=== PATIENT | male | born 2000 | race Caucasian/White ===

== ENCOUNTER 2021-06-14 22:04 | Emergency (ER) | payer OTHER, SELFPAY ==
[2021-06-14] VITALS (13 sets, daily range): BP systolic 133; BP diastolic 83; PULSE 59–76; RESP 12–22; TEMP 36.6; O2SAT 99–100
--- NOTE | 2021-06-14 22:15 | RT.EKG_ITS ---
APPROVED REPORT Exam: Resting ECG Reason for Exam: lightheaded Patient Location: E HR:62 bpm ECG Measurements Heart Rate 62 AXIS CO 170 P 24 QRSd 115 QRS 43 QT 398 T 41 QTc 405 Conclusion Sinus rhythm...normal P axis, V-rate 60- 99 Nonspecific intraventricular conduction delay...QRSd >115mS, not LBBB/RBBB ST elev, probable normal early repol pattern...ST elevation, age<55
--- NOTE | 2021-06-14 22:29 | ED.GENADUL_ITS ---
Discharge Plan Disposition Patient Disposition: HOME Condition: Improving Discharge Details Clinical Impression: Dizziness, Light-headedness, Headache Primary Care Provider: Unknown,Unknown ED Provider: Satinder Pena Home Meds and New Rx's Prescriptions: New meclizine 25 mg tablet 25 mg PO TID PRN (Reason: dizziness) Qty: 20 0RF Continued paroxetine HCl 30 mg Tablet 30 mg PO DAILY 0RF Discharge Instructions Instructions: Dizziness (ED), General Headache (ED) Additional Instructions: Please follow-up with your primary care physician and seek follow-up with neurology specialist. Please return to the emergency department if you have any worsening symptoms such as worsening headache visual changes dizziness nausea vomiting weakness numbness or other abnormal symptoms. Medical Decision Making <Pa Millard MD - Last Filed: 06/14/21 23:04> 21 yo male who has a hx of anxiety and denies other chronic medical issues, comes in with complaints of feeling lightheaded and dizzy. He states he ran a 5K Monday and noticed after he would get episodes where he felt both dizzy and lightheaded. Denies chest pain, dyspnea, fevers, chills, head pain. Since this he has had intermittent episodes similar to this and feels it is worse with head movement. He denies falls. He can't think of anything that makes his symptoms better other than not moving his head. He arrives stable speaking clearly. CN II-XII intact, no focal motor or sensation deficits, NIH of 0, reassuring HINTS exam. His symptoms seem most consistent with peripheral vertigo and no findings to suggest central vertigo. He does state he also feels lightheaded with these episodes as well. NO chest pain or dyspnea so doubt acs, will obtain ecg and also evaluate for anemia and electrolyte abnormalities. Wells low and perc negative so doubt PE. Denies any head or neck pain so doubt dissection. Pt signed out to oncoming provider pending labs and reevaluation after meclizine. Differential Diagnosis Differential Diagnosis: bppv, labrynthitis, over exertion ECG Data Attestation: I personally reviewed and interpreted this ECG (s) as follows: Prior ECG tracings: not available for review Interpretation: sinus rhythm, rate of 60, no stemi early repol <Satinder Pena MD - Last Filed: 06/15/21 01:18> 21 yo male who has a hx of anxiety and denies other chronic medical issues, comes in with complaints of feeling lightheaded and dizzy. He states he ran a 5K Monday and noticed after he would get episodes where he felt both dizzy and lightheaded. Denies chest pain, dyspnea, fevers, chills, head pain. Since this he has had intermittent episodes similar to this and feels it is worse with head movement. He denies falls. He can't think of anything that makes his symptoms better other than not moving his head. He arrives stable speaking clearly. CN II-XII intact, no focal motor or sensation deficits, NIH of 0, reassuring HINTS exam. His symptoms seem most consistent with peripheral vertigo and no findings to suggest central vertigo. He does state he also feels lightheaded with these episodes as well. NO chest pain or dyspnea so doubt acs, will obtain ecg and also evaluate for anemia and electrolyte abnormalities. Wells low and perc negative so doubt PE. Denies any head or neck pain so doubt dissection. Pt signed out to oncoming provider pending labs and reevaluation after meclizine. 1: 15 AM patient resting comfortably no acute distress symptoms greatly improved from arrival. Endorses remote trauma sustaining concussion no prior neuroimaging, since that event patient has been having electric shocklike sensations in the frontal portion of his head rating to the rest of his body. No chest pain no shortness of breath no presyncope. Asymptomatic at this time ambulatory no acute distress. Patient encouraged to follow-up with neurology is going to see his primary and specialist when he returns home to [place] in the coming weeks. Given home care instructions and return precautions. HPI <Pa Millard MD - Last Filed: 06/14/21 23:04> General Mode of arrival: ambulatory . Date/Time Provider Initiated Documentation: 06/14/21 22:04 . Limitations to Documentation: no limitations . Information obtained by: patient . History of Present Illness 21 year old M presents to the emergency department with the chief complaint of lightheaded, described as moderate, Patient started experiencing this day(s) (2) and it has been intermittent. Other factors that worsen symptoms (head movement) . Patient notes denies chest pain. Patient did receive the following treatments prior to arrival, none Related Data Home Medications Medication Instructions Recorded Confirmed meclizine 25 mg tablet 25 mg PO TID PRN #20 tab 06/14/21 paroxetine HCl 30 mg tablet 30 mg PO DAILY 06/14/21 06/14/21 Previous Rx's Medication Instructions Recorded meclizine 25 mg tablet 25 mg PO TID PRN #20 tab 06/14/21 General Stated Complaint: Dizzy/Sync BRENDA: 3 Review of Systems <Pa Millard MD - Last Filed: 06/14/21 23:04> All systems reviewed & are unremarkable except as noted in HPI and below Constitutional Constitutional: Denies chills, Denies fever(s) and Denies weakness Eyes Eyes: Denies loss of vision Cardiovascular Cardiovascular: Denies chest pain and Denies dyspnea Respiratory Respiratory: Denies cough and Denies dyspnea Gastrointestinal Gastrointestinal: Denies abdominal pain, Denies nausea and Denies vomiting Neurologic Neurologic: Denies loss of vision and Denies weakness PFSH <Pa Millard MD - Last Filed: 06/14/21 23:04> All Active Problems (Updated 06/15/21 @ 01:18 by Satinder Pena MD) Dizziness (Acute) Light-headedness (Acute) Headache (Acute) Social History Smoking/Tobacco Use Status: Never Smoking risk assessment performed?: Yes Alcohol Intake: never Drug use: Never Substance use type: does not use Do you feel safe at home: Yes Do you feel safe in your relationship?: Yes Course <Pa Millard MD - Last Filed: 06/14/21 23:04> Vital Signs Vital signs: Vital Signs Temperature 36.6 C 06/14/21 22:08 Pulse 76 06/14/21 22:08 Respiratory Rate 18 06/14/21 22:08 Blood Pressure 133/83 06/14/21 22:08 Pulse Oximetry 99 06/14/21 22:08 Temperature 36.6 C 06/14/21 22:08 Temperature Source Skin 06/14/21 22:08 Pulse 76 06/14/21 22:08 Respiratory Rate 18 06/14/21 22:11 Respiratory Effort 06/14/21 22:11 Respiratory Depth Normal 06/14/21 22:11 Respiratory Pattern Normal 06/14/21 22:11 Blood Pressure 133/83 06/14/21 22:08 Blood Pressure Position Sitting 06/14/21 22:08 Pulse Oximetry 99 05/09/22 22:08 Oxygen Delivery Method Room Air 06/14/21 22:08 Oxygen Flow Rate 0 06/14/21 22:08 Pain Level 2 06/14/21 22:08 Sign Out <Pa Millard MD - Last Filed: 06/14/21 23:04> Sign Out Data: Sign Out Comment: episodes where he feels lightheaded and dizzy mainly with head movement since Monday, pending labs and reassessment after meclizine. Reassuring exam. Last updated by Pa Millard MD at 06/14/21 22:36
[2021-06-14] MEDS: Normal Saline 1,000 ML 1000 ML IV (22:43)
[2021-06-14] MEDS: Meclizine 25 MG TAB PO (22:43)
[2021-06-14 22:48] LABS: Abs Immature Grans 0.03 10^3/uL (0.0-0.06); Absolute Basophil Count 0.03 10^3/uL (0.0-0.2); Absolute Eosinophil Count 0.14 10^3/uL (0.0-0.7); Absolute Lymphocyte Count 1.63 10^3/uL (1.2-3.4); Absolute Monocyte Count 0.47 10^3/uL (0.1-0.8); Absolute Neutrophil Count 4.15 10^3/uL (1.2-6.7); Basophils % 0.5; Eosinophils % 2.2; HCT 44.1 % (40.0-50.0); HGB 14.5 g/dL (13.5-17.5); Immature Grans % 0.5; Lymphocytes % 25.3; MCH 29.1 pg (27.0-33.0); MCHC 32.9 % (32.0-36.0); MCV 88 fL (80-95); Monocytes % 7.3; Neutrophils % 64.2; Platelet Count 164 10^3/uL (130-400); RBC 4.99 10^6/uL (4.36-5.78); RDW 11.9 % (11.8-14.1); RDW-SD 38.2 fL; WBC 6.45 10^3/uL (4.4-10.8)
[2021-06-14 23:14] LABS: ALT 35 U/L (16-63); AST 27 U/L (15-37); Albumin 4.1 g/dL (3.4-5.0); Alkaline Phosphatase 82 U/L (46-116); Anion Gap 7.1 mmol/L (3-11); BUN 11 mg/dL (7-18); Bilirubin, Total 0.8 mg/dL (0.2-1.0); CO2 27.9 mmol/L (21.0-32.0); Calcium 8.7 mg/dL (8.5-10.1); Chloride 105 mmol/L (98-107); Glucose 110 mg/dL (74-106); Potassium 3.3 mmol/L (3.5-5.1); Sodium 140 mmol/L (136-145); Total Protein 7.4 g/dL (6.4-8.2); Troponin I < 50 ng/L (<or=60)
--- NOTE | 2021-06-14 23:45 | DI.CT_ITS ---
Exam(s) CT HEAD WO EXAM: CT HEAD WO CLINICAL HISTORY: frontal headaches, worsening, remote trauma. TECHNIQUE: Imaging Protocol: Axial computed tomography images with coronal and sagittal reformatted images were created and reviewed COMPARISON: No exams were available for comparison FINDINGS: There are no skull fractures nor fluid in the visualized paranasal sinuses. There is no evidence of intracranial hemorrhage, mass effect, or shift of midline structures. There are no extra-axial fluid collections. The ventricles are not enlarged or shifted and there is no blo od within the ventricular system nor within the basal cisterns. IMPRESSION: No acute intracranial findings on this noninfused CT scan of the brain. RADIATION DOSE DELIVERED: 879.07mGy.cm Total DLP DATA REPOSITORY: All CT scans at this facility are submitted to the National Radiology Data Registry (NRDR) Dose Index Registry (DIR) with the [employer] (A[employer]). RADIATION OPTIMIZATION: All CT scans at this facility use at least one of these dose optimization te chniques: automated exposure control; mA and/or kV adjustment per patient size (includes targeted exa ms where dose is matched to clinical indication); or iterative reconstruction.
[2021-06-15] VITALS (12 sets, daily range): BP systolic 120–122; BP diastolic 58–70; PULSE 58–77; RESP 10–25; O2SAT 99–100
--- NOTE | 2021-06-15 01:13 | DI.VRAD_ITS ---
PROCEDURE INFORMATION: Exam: CT Head Without Contrast Exam date and time: 06/15/2021 12:28 AM Age: 21 years old Clinical indication: Dizziness; Patient HX: Frontal headaches, worsening remote trauma; Additional info: HX of concussion last year TECHNIQUE: Imaging protocol: Computed tomography of the head without contrast. Radiation optimization: All CT scans at this facility use at least one of these dose optimization techniques: automated exposure control; mA and/or kV adjustment per patient size (includes targeted exams where dose is matched to clinical indication); or iterative reconstruction. COMPARISON: No relevant prior studies available. FINDINGS: Brain: Mild volume loss No hemorrhage. Unremarkable white matter. No mass effect. Cerebral ventricles: No ventriculomegaly. Paranasal sinuses: Visualized sinuses are unremarkable. No fluid levels. Mastoid air cells: Visualized mastoid air cells are well aerated. Bones/joints: Unremarkable. No acute fracture. Soft tissues: Unremarkable. IMPRESSION: No acute intracranial abnormality. Dictated and Authenticated by: Bennie Taylor MD. Ordering:BARBI Rajan MD
== END 2021-06-15 01:20 | disposition home or self-care (01) ==
PROVIDERS: Emergency Medicine; Emergency Provider Emergency Medicine
DX: R42 Dizziness and giddiness (principal); R51.9 Headache, unspecified
CPT/HCPCS: 36415; 80053; 93005; 96360; 99284; 70450; 83735; 84484; 85025; 93010

== ENCOUNTER 2021-12-19 19:16 | Emergency (ER) | payer OTHER, SELFPAY ==
--- OUTSIDE RECORDS SUMMARY | 2021-12-19 19:21 | XMS_ITS | Continuity of Care Document ---
:2000 Author Organization [facility] Care Team Providers Name Role Phone [facility] Unavailable Unavailable Medications Combined list of outpatient medications from Department of Defense and Veterans Affairs facilities. Medications provided include 1) outpatient medications from the last 15 months, and 2) patient-reported medications. Medication Details Route Status Patient Prescription Prescription Last Ordering Order Source Instructions Expires Number Dispense Provider Date Date CETIRIZINE Active [id number] KELKAR, 01/28/ Pharmac HCL 1 2020 y Data (cetirizine Transac HCl), 10 tion MG, TABLET, Service ORAL, Facilit [facility], 500 ea. BOTTLE CETIRIZINE Active [id number] KELKAR, 02/19/ Pharmac HCL 2 2021 y Data (CETIRIZINE Transac HCL), 10 tion MG, TABLET, Service ORAL, PACK Facilit [facility], y 500 ea. BOTTLE MECLIZINE Active [id number] ALIS, 06/21/ armac HCL 2 2021 y Data (MECLIZINE Transac HCL), 25 tion MG, TABLET, Service ORAL, Facilit [facility] y [facility], 100 ea. BOTTLE PAROXETINE Active [id number] DONDLINGE 08/07 9/ Pharmac HCL 2 R,DB 2021 y Data (PAROXETINE Transac HCL), 30 tion MG, TABLET, Service ORAL, GSMS, Facilit INC., 1000 y ea. BOTTLE PAROXETINE Active [id number] DONDLINGE 01/07 4/ Pharmac HCL 1 R,DB 2020 y Data (PAROXETINE Transac HCL), 30 tion MG, TABLET, Service ORAL, GSMS, Facilit INC., 1000 y ea. BOTTLE PAROXETINE Active [id number] DONDLINGE 02/07 3/ Pharmac HCL 2 R,DB 2021 y Data (PAROXETINE Transac HCL), 30 tion MG, TABLET, Service ORAL, GSMS, Facilit INC[employer] 1000 y ea. BOTTLE PAROXETINE Active [id number] DONDLINGE 05/08 7/ Pharmac HCL 2 R,DB 2021 y Data (PAROXETINE Transac HCL), 30 tion MG, TABLET, Service ORAL, GSMS, Facilit INC., 1000 y ea. BOTTLE PAROXETINE Active [id number] DONDLINGE 12/08 2/ Pharmac HCL 1 R,DB 2020 y Data (PAROXETINE Transac HCL), 30 tion MG, TABLET, Service ORAL, GSMS, Facilit INC., 1000 y ea. BOTTLE PAROXETINE Active [id number] DONDLINGE 10/13 / Pharmac HCL 1 R,DB 2020 y Data (PAROXETINE Transac HCL), 30 tion MG, TABLET, Service ORAL, GSMS, Facilit INC., 1000 y ea. BOTTLE PAROXETINE Active [id number] DONDLINGE 10/09 / Pharmac HCL 1 R,DB 2020 y Data (PAROXETINE Transac HCL), 30 tion MG, TABLET, Service ORAL, GSMS, Facilit INC., 1000 y ea. BOTTLE PAROXETINE Active [id number] DONDLINGE 07/0 1/ Pharmac HCL 2 R, 2021 y Data (PAROXETINE Transac HCL), 30MG, tion TABLET, Service ORAL, ZYDUS Facilit [facility], y 30 ea. BOTTLE PAROXETINE Active [id number] DONDLINGE 07/0 4/ Pharmac HCL 2 R, 2021 y Data (PAROXETINE Transac HCL), 30MG, tion TABLET, Service ORAL, ZYDUS Facilit [facility], y 30 ea. BOTTLE PFIZER Active [id number] VILLA, 01/17/ Pha rmac COVID-19 2020 y Data VACCINE Transac (EUA) tion (COVID-19 Service vaccine, Facilit mRNA, y [id number], LNP-S (Pfizer)/PF ), 30 MCG/0.3, VIAL, INTRAMUSC, PFIZER MANUFACT, 1.8 ml VIAL Immunizations Combined list of available immunizations from the Department of Defense and Veterans Affairs facilities. Immunization Series Date Administered Site Reaction Lot CVX Drug St atus Comments Source Given By Number Code Thread Checker COVID-19, 01/16/ Lili VILLA Not COVID -19, [facility] mRNA, LNP-S, 2020 Manufacturing Given mRNA, PF, 30 [place] LNP-S, mcg/0.3 mL (PFR) PF, 30 dose mcg/0.3 mL dose COVID-, 06/02/ [facility]LL[facility], Pfizer Not COVID-1 mRNA, LNP-S, 2020 Manufacturing Given mRNA, PF, 30 [place] LNP-S, mcg/0.3 mL (PFR) PF, 30 dose mcg/0.3 mL dose COVID-, 05/11/ TELLO, [employer] Not COVID-1 , mRNA, LNP-S, 2020 Manufacturing Given mRNA, PF, 30 [place] LNP-S, mcg/0.3 mL (PFR) PF, 30 dose mcg/0.3 mL dose Social History Combined list of available smoking, tobacco, and other social history from Department of Defense andVeterans Affairs facilities. Social History Type Response Date Comment Source This section is an empty social history section. DoD
--- OUTSIDE RECORDS SUMMARY | 2021-12-19 19:21 | XMS_ITS ---
:2000 Author Organization [facility] Address [address], [place] [id number] Care Team Providers Name Role Phone Zak Gordon Unavailable Unavailable PROBLEMS Type Condition ICD9-CM Code VSP95-XK Code Onset Condition SNO MED Code Dates Status Problem Environmental Z91.09 Active [id number] allergies Problem Seasonal allergic J30.1 Active rhinitis due to pollen Problem Multiple Z91.09 Active environmental allergies Problem Chronic rhinitis J31.0 Active 860 96329 Problem Allergic rhinitis J30.1 Active 21 747913 due to pollen Problem Allergy to insect Z91.038 Active stings Problem Asthma J45.909 Active 119725348 ALLERGIES Substance Reaction Event Type Date Status Mite (D. farinae) Unknown Drug Allergy Oct, Active Ragweed Unknown Drug Allergy Oct, Active Cat Dander Unknown Drug Allergy Oct, Active Dog Dander Unknown Drug Allergy Oct, Active Mold Unknown Drug Allergy Oct, Active Grass Pollen Standardized Ext Unknown Drug Allergy Oct, Active ENCOUNTERS Encounter Location Date Diagnosis [address], Dec, Allerg ic rhinitis due to [facility] [address] [address] polle n J30.1 [place], [place] [id number] [address], Dec, Allerg ic rhinitis due to [facility] [address] [address] polle n J30.1 [place] [id number] [address], Nov, Allerg ic rhinitis due to [facility] [address] [address] polle n J30.1 [facility] [place] [id number] [address], Nov, Allerg ic rhinitis due to [facility] [address] [address] polle n J30.1 Rach Harris [place], [place] [id number] [address], Nov, Allerg ic rhinitis due to [facility] [address] [address] polle n J30.1 [place] [id number] [address], Oct, Allerg ic rhinitis due to [facility] [address] [address] polle n J30.1 [place] [id number] [address], Oct, Allerg ic rhinitis due to [facility] [address] [address] polle n J30.1 Rach Wilkinson [place], [place] [id number] [address], Oct, Postna valerie drip R09.82 ; [facility] [address] [address] Chron ic rhinitis J31.0 and Rach Wilkinson [place], [place] Environmenta l allergies [id number] Z91.[address], Oct, [facility] [address] [address] [place] [id number] IMMUNIZATIONS No Known Immunizations SOCIAL HISTORY Never Assessed REASON FOR REFERRAL FUNCTIONAL STATUS PLAN OF CARE Activity Details Follow Up 1 Week Reason: Future Appointment Provider Name:Zak monroe, 2021-12-24 01:00:00 PM, [address] [place] [address], [address], [address], [place], [place], [id number], VITAL SIGNS Weight 255 lbs 2021-10-15 Heart Rate 69 /min 2021-10-15 Oximetry 99 2021-10-15 Blood pressure systolic 124 mm Hg 2021-10-15 Blood pressure diastolic 80 mm Hg 2021-10-15 MEDICATIONS Medication Instructions Dosage Frequency Start End Duration Statu s Date Date Flonase Nasally Once a 1 spray in 24h 30 day(s) Not- Takin Allergy Relief day each g 50 MCG/ACT nostril Zyrtec 10mg 1 24h Active Paxil 30 MG Orally Once a 1 tablet in 24h 30 day(s) Active day the morning Albuterol Inhalation every 1 puff as 4h Not -Takin Sulfate 108 4 hrs needed g (90 Base) MCG/ACT Meclizine HCl Orally every 12 1 tablet as 12h Not-Takin 25 MG hrs needed g Azelastine HCl Nasally Twice a 1 puff in 12h 30 day( s) Not-Takin 137 MCG/SPRAY day each g nostril PROCEDURES Procedure Date Ordered Result Body Site ALLERGY INJ MULT Dec 03, 2021 ALLERGY INJ MULT Dec 24, 2021 ALLERGY INJ MULT Nov 26, 2021 ALLERGY INJ MULT Dec 17, 2021 ALLERGY INJ MULT Nov 19, 2021 ALLERGY INJ MULT Dec 10, 2021 ALLERGY INJ MULT Oct 15, 2021 ALLERGY INJ MULT Nov 05, 2021 RESULTS No Results REASON FOR VISIT ENT Allergy Shot, ENT Allergy Shot, ENT Allergy Shot, ENT Allergy Shot, ENT Allergy Shot, ENT Allergy Shot, Allergy Shot, allergy shots, ENT- ALLERGY INJECTIONS, chart preload
[2021-12-19 19:25] VITALS: BP 131/74; PULSE 95; RESP 20; TEMP 36.9; O2SAT 99
[2021-12-19] MEDS: Famotidine 20 MG TAB (20:03)
--- NOTE | 2021-12-19 21:01 | ED.GENADUL_ITS ---
Discharge Plan Disposition Patient Disposition: HOME Condition: Stable Discharge Details Clinical Impression: Ingestion, drug, inadvertent or accidental, History of gastroesophageal reflux (GERD) Primary Care Provider: Margarita,Local ED Provider: Miracle Carrillo Home Meds and New Rx's Prescriptions: Continued paroxetine HCl 30 mg Tablet 30 mg PO DAILY cetirizine 10 mg Capsule 10 mg PO DAILY Discharge Instructions Additional Instructions: May take Maalox or Tums daily as needed for symptoms stay away From spicy foods for the next several days, acidic., And tomato-based substances Return earlier with new or worsening complaints Discharge Data Discharge Date/Time-TO BE ENTERED AT DEPARTURE: 12/19/21 21:11 Medical Decision Making Patient appears well, after GI cocktail he symptomatically improved and abdomen is nontender Able to tolerate p.o. Return precautions discussed and patient expressed understanding Medical Records Medical records reviewed: Yes I reviewed the patient's medical records. Lab Data Lab results reviewed: Yes I reviewed the patient's lab results. HPI General Date/Time Provider Initiated Documentation: 12/19/21 19:16 . HPI Narrative: This 21-year-old male presents after ingesting a very spicy pepper. He drank approximately 1 L of milk and now has indigestion. He denies any nausea or vomiting. He denies any chest pain or shortness of breath. He denies any additional issues. He states that this occurred just prior to his arrival today. Related Data Home Medications Medication Instructions Recorded Confirmed paroxetine HCl 30 mg tablet 30 mg PO DAILY 06/14/21 12/19/21 cetirizine 10 mg capsule 10 mg PO DAILY 12/19/21 12/19/21 General Stated Complaint: Abd Prob BRENDA: 4 Review of Systems All systems reviewed & are unremarkable except as noted in HPI and below PFSH All Active Problems (Updated 12/19/21 @ 21:05 by CHYNA Conley) Ingestion, drug, inadvertent or accidental (Acute) History of gastroesophageal reflux (GERD) (Acute) Social History Smoking/Tobacco Use Status: Never Smoking risk assessment performed?: Yes Alcohol Intake: never Drug use: Never Substance use type: does not use Do you feel safe at home: Yes Do you feel safe in your relationship?: Yes Exam Const General: cooperative and comfortable Resp Effort & Inspection: normal respiratory effort Auscultation: clear to auscultation bilaterally Cardio Rate: regular rate Rhythm: regular rhythm GI Other: tenderness on palpation in epigastrium, mild Course Vital Signs Vital signs: Vital Signs Temperature 36.9 C 12/19/21 19:25 Pulse 95 H 12/19/21 19:25 Respiratory Rate 20 12/19/21 19:25 Blood Pressure 131/74 12/19/21 19:25 Pulse Oximetry 99 12/19/21 19:25 Temperature 36.9 C 12/19/21 19:25 Temperature Source Tympanic 12/19/21 19:25 Pulse 95 H 12/19/21 19:25 Respiratory Rate 20 12/19/21 19:25 Respiratory Effort 12/19/21 19:36 Blood Pressure 131/74 12/19/21 19:25 Blood Pressure Position Sitting 12/19/21 19:25 Pulse Oximetry 99 12/19/21 19:25 Oxygen Delivery Method Room Air 12/19/21 19:25 Oxygen Flow Rate 0 12/19/21 19:25 Pain Level 6 12/19/21 19:25
== END 2021-12-19 21:11 | disposition home or self-care (01) ==
PROVIDERS: Emergency Provider Physician Assistant
DX: T78.1XXA Other adverse food reactions, not elsewhere classified, initial encounter; X58.XXXA Exposure to other specified factors, initial encounter; K21.9 Gastro-esophageal reflux disease without esophagitis
CPT/HCPCS: 99282; 99281